=== PATIENT | male | born 1970 | race African-American/Black ===

== ENCOUNTER 2018-04-03 10:54 | Day surgery (SDC) | payer MEDICARE ==
[~2018-04-03 10:54] MED LIST: HYDROmorphone 2 MG/ML VIAL IV PRN; IV RINGERS,LACTATED 1000ML 1,000 ML IV SCH; KETAMINE HCL IN STERILE WATER 50 MG/5 ML SYRINGE ONE; LIDOCAINE 1% PF 2 ML VIAL. ID PRN; MIDAZOLAM HCL/PF 2 MG/2 ML VIAL. ONE; MORPHINE SULFATE 2 MG/ML VIAL. IV PRN; ONDANSETRON PF 4 MG/2 ML VIAL. IV PRN; PREG100C PO; PROCHLORPERAZINE 10 MG/2 ML VIAL. IV PRN; PROPOFOL 40 ML IV ONE; TRAM50TA PO; fentaNYL PF VIAL 100 MCG/2 ML VIAL IV PRN
[2018-04-03 12:05] VITALS: BP 107/51
--- NOTE | 2018-04-03 12:11 | RAD ---
EXAM: Cervical spine MRI without contrast. HISTORY: Chronic neck pain and left upper extremity radiculopathy. TECHNIQUE: Multiplanar, multisequence magnetic resonance imaging of the cervical spine was performed without contrast. COMPARISON: 10/09/2015 FINDINGS: There is instrumented anterior spinal fusion and interbody fusion at C5-C6. There is mild retrolisthesis of C3 on C4 and anterolisthesis of C7 on T1, T1 on T2 and T2 on T3. 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 No spinal cord signal abnormality is seen. At C2-C3, there is a disc bulge and endplate remodeling. There is mild right facet arthropathy. There is mild left foraminal stenosis. At C3-C4, there is a broad-based posterior central to left paracentral disc protrusion and annular tear superimposed on a diffuse disc bulge and endplate osteophytosis. There is moderate bilateral facet arthropathy. There is uncovertebral arthropathy. There is buckling of the ligamentum flavum. There is severe right and moderate to severe left foraminal stenosis. There is slight flattening of the ventral aspect of spinal cord without significant central canal stenosis. At C4-C5, there is mild bilateral facet arthropathy. There is no stenosis. At C5-C6, there is instrumented fusion. There is mild left facet arthropathy. There is no stenosis. At C6-C7, there is a right paracentral to lateral recess disc protrusion superimposed on a disc bulge and endplate osteophytosis. There is mild right and moderate left facet arthropathy. There is buckling of the ligamentum flavum. There is severe left greater than right foraminal stenosis. There is deformation of the right ventral aspect of the spinal cord and deviation of the right ventral nerve ramus without significant central canal stenosis. IMPRESSION: 1. Multilevel degenerative change throughout the cervical spine, described in detail above. These findings are very similar compared to the prior study, allowing for differences in imaging technique. There is associated mild left foraminal stenosis at C2-C3, severe right and moderate to severe left foraminal stenosis at C3-C4 and severe left greater than right foraminal stenosis at C6-C7. 2. Instrumented intraspinal fusion and interbody fusion at C5-C6. Electronically signed by: Anahi Chen MD (04/03/2018 12:07 PM) [id number]
== END 2018-04-03 12:22 | disposition home or self-care (01) ==
LOC: MRI 10:54
PROVIDERS: ATTEND Anesthesiology
DX: M48.02 Spinal stenosis, cervical region (principal); M50.123 Cervical disc disorder at C6-C7 level with radiculopathy; M25.78 Osteophyte, vertebrae; Z98.1 Arthrodesis status
CPT/HCPCS: 72141; J2250; J2704